=== PATIENT | female | born 1950 | race Caucasian/White ===

== ENCOUNTER 2018-02-24 16:30 | Emergency (ER) | payer MEDICARE, BC ==
[~2018-02-24] VITALS: Ht 177.8 cm; Wt 97.5 kg
[~2018-02-24 16:30] MED LIST: ASPI-482 PO; CLON0.5T11 PO; FURO-69 PO; METO10TA81 PO; MORP30TA PO; OLME1TAB23 PO; POTA10TA12 PO; PRAV40TA2 PO; ZOLP10TA4 PO
[2018-02-24 16:55] VITALS: BP 138/103
[2018-02-24] MEDS ORDERED: HYDROcodone/APAP 10/325 1 TAB TABLET PO ONE (17:00)
[2018-02-24] MEDS ORDERED: MORPHINE SULFATE 2 MG/ML VIAL. IM ONE (17:30)
--- NOTE | 2018-02-24 18:19 | RAD ---
Examination: Right Lower Extremity Venous Doppler Ultrasound History: Right lower extremity pain Comparison: None Procedure: Fenton scale, color flow 2D and spectal waveform analysis images are obtained with and without compression in the area of the common femoral vein, superficial femoral vein - femoral vein junction, main femoral vein (superficial femoral vein) and popliteal vein. Veins of the proximal calf are also imaged. Findings: There is normal duplex flow, color flow and compressibility of all visualized vein segments. No evidence of deep venous thrombus is present. Impression: No evidence of DVT in the right lower extremity. Electronically signed by: Rolando Pearson MD (02/24/2018 6:15 PM) [facility]
--- NOTE | 2018-02-24 18:23 | PHYS DOC ---
Past Medical History Past Medical History: No Pertinent History Past Surgical History: No Surgical History Alcohol Use: None Drug Use: None Adult General Chief Complaint Chief Complaint: KNEE INJURY HPI HPI Patient is a 67 year old female who presents with right knee pain. The patient states that her pain is been increasing throughout the day. She states that she could barely bear weight on it earlier today and presented to the emergency department. She feels like there is swelling as well to that extremity. She does have a history of a blood clot many years ago. She denies shortness of breath or chest pain. Review of Systems Review of Systems Constitutional: Denies fever or chills [] Eyes: Denies change in visual acuity, redness, or eye pain [] HENT: Denies nasal congestion or sore throat [] Respiratory: Denies cough or shortness of breath [] Cardiovascular: No additional information not addressed in HPI [] GI: Denies abdominal pain, nausea, vomiting, bloody stools or diarrhea [] : Denies dysuria or hematuria [] Musculoskeletal: see history of present illness Integument: Denies rash or skin lesions [] Neurologic: Denies headache, focal weakness or sensory changes [] Endocrine: Denies polyuria or polydipsia [] All other systems were reviewed and found to be within normal limits, except as documented in this note. Current Medications Current Medications Current Medications Medications (Trade) Dose Ordered Sig/[place] Start Time Stop Time Status Last Admin Dose Admin Acetaminophen/ Hydrocodone Bitart (Lortab 10/325) 1 tab 1X ONCE 02/24/18 17:00 02/24/18 17:17 DC Morphine Sulfate (Morphine Sulfate) 2 mg 1X ONCE 02/24/18 17:30 02/24/18 17:31 DC 02/24/18 17:31 2 MG Allergies Allergies Allergies Coded Allergies Type Severity Reaction Last Updated Verified codeine Allergy Intermediate 01/18/14 Yes ketorolac Allergy Intermediate 01/18/14 Yes levofloxacin Allergy Intermediate 01/18/14 Yes oxycodone Allergy Intermediate 01/18/14 Yes prochlorperazine Allergy Intermediate 01/18/14 Yes risperidone Allergy Intermediate 01/18/14 Yes Physical Exam Physical Exam Constitutional: Well developed, well nourished, no acute distress, non-toxic appearance. [] Cardiovascular:Heart rate regular rhythm, no murmur [] Lungs & Thorax: Bilateral breath sounds clear to auscultation [] Abdomen: Bowel sounds normal, soft, no tenderness, no masses, no pulsatile masses. [] Skin: Warm, dry, no erythema, no rash. [] Back: No tenderness, no CVA tenderness. [] Extremities: tenderness to right knee with no calor or ecchymosis noted, no significant edema noted to the knee in comparison to the left knee, no cyanosis , no clubbing, ROM decreased due to pain, Homans sign is negative, pulses and sensation are intact distal to affected extremity Neurologic: Alert and oriented X 3, normal motor function, normal sensory function, no focal deficits noted. [] Psychologic: Affect normal, judgement normal, mood normal. [] Current Patient Data Vital Signs Vital Signs Date Time Temp Pulse Resp B/P (MAP) Pulse Ox O2 Delivery O2 Flow Rate FiO2 02/24/18 17:31 16 99 Room Air 02/24/18 16:55 97.7 67 138/103 (115) 97.7 EKG EKG [] Radiology/Procedures Radiology/Procedures []PATIENT: NASRIN JACQUES AACCOUNT: [id number]#: [id number] : 1950 LOCATION: ER AGE: 67 SEX: F EXAM STATUS: REG ER ORD. PHYSICIAN: JESSICA GREGORIO APRN REASON: RT ARM PAIN, r/o dvt PROCEDURE: VENOUS LOWER EXTREMITY RIGHT Examination: Right Lower Extremity Venous Doppler Ultrasound History: Right lower extremity pain Comparison: None Procedure: Fenton scale, color flow 2D and spectal waveform analysis images are obtained with and without compression in the area of the common femoral vein, superficial femoral vein - femoral vein junction, main femoral vein (superficial femoral vein) and popliteal vein. Veins of the proximal calf are also imaged. Findings: There is normal duplex flow, color flow and compressibility of all visualized vein segments. No evidence of deep venous thrombus is present. Impression: No evidence of DVT in the right lower extremity. Electronically signed by: Rolando Pearson MD (02/24/2018 6:15 PM) [facility] DICTATED and SIGNED BY: ROLANDO PEARSON MD DATE: 02/24/18 181 PATIENT: NASRIN JACQUES ACCOUNT: [id number] : 1950 LOCATION: ER AGE: 67 SEX: F EXAM STATUS: DEP ER ORD. PHYSICIAN: JESSICA GREGORIO APRN REASON: pain with no injury PROCEDURE: KNEE RIGHT 3V Examination: 3 views of the right knee HISTORY: History of right knee pain COMPARISON: None available FINDINGS: Severe joint space loss identified in the medial compartment. Moderate joint space loss identified in the lateral, patellar femoral compartments of the knee. 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 Electronically signed by: Rolando Pearson MD (02/24/2018 8:31 PM) [facility] DICTATED and SIGNED BY: ROLANDO PEARSON MD DATE: 02/24/182028 Course & Med Decision Making Course & Med Decision Making Pertinent Labs and Imaging studies reviewed. (See chart for details) []The patient states that she is allergic to all pain medications except morphine. She was given 4 mg of morphine IM in the emergency department to control her pain. She was placed in a knee immobilizer and is to follow-up with orthopedics. She is in agreement with this plan. Dragon Disclaimer Dragon Disclaimer This electronic medical record was generated, in whole or in part, using a voice recognition dictation system. Departure Departure Impression: Primary Impression: Knee pain Disposition: 01 HOME, SELF-CARE Condition: STABLE Referrals: NERISSA KO MD (PCP) JULIANN UYSUF II, MD Patient Instructions: Knee Pain Additional Instructions: Follow-up with orthopedics for further evaluation of your knee. Wear the knee immobilizer for comfort. If needed you may use her at home crutches. Be very careful while using crutches. JESSICA GREGORIO APRN Feb 24, 2018 18:23
--- NOTE | 2018-02-24 20:35 | RAD ---
Examination: 3 views of the right knee HISTORY: History of right knee pain COMPARISON: None available FINDINGS: Severe joint space loss identified in the medial compartment. Moderate joint space loss identified in the lateral, patellar femoral compartments of the knee. 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 Electronically signed by: Rolando Pearson MD (02/24/2018 8:31 PM) [facility]
== END 2018-02-24 18:59 | disposition home or self-care (01) ==
LOC: ER 16:30
DX: M25.561 Pain in right knee (principal); M79.604 Pain in right leg; Z88.1 Allergy status to other antibiotic agents; Z88.5 Allergy status to narcotic agent; Z88.6 Allergy status to analgesic agent; Z88.8 Allergy status to other drugs, medicaments and biological substances
CPT/HCPCS: 29505; 73562; 93971; 96372; 99284; J2270

== ENCOUNTER → 2019-04-23 | Outpatient (CLI) | payer MEDICARE, BC ==
[~2019-04-23] MED LIST changes: +ALBU2.5V5 NEB; +CHOL3000 PO; +CLON-77 PO; -CLON0.5T11 PO; +CRESTOR5 MG PO; +DULO60CA6 PO; +HYDR25TA PO; +LEVO100T PO; +MELA3TAB43 PO; +METO50TA4 PO; +VALS1TAB18 PO; +VENTOLIN HFA18 GM INH
[2019-04-23 09:57] LABS: BASO % 1 % (0-3); EOS # 0.3 x10^3/uL (0.0-0.7); EOS % 4 % (0-3); HEMATOCRIT 46.5 % (36.0-47.0); HEMOGLOBIN 15.3 g/dL (12.0-15.5); LYMPH # 2.2 x10^3/uL (1.0-4.8); LYMPH % 31 % (24-48); MEAN CORPUSCULAR HEMOGLOBIN 29 pg (25-35); MEAN CORPUSCULAR HGB CONC 33 g/dL (31-37); MEAN CORPUSCULAR VOLUME 87 fL (79-100); MONO # 0.6 x10^3/uL (0.0-1.1); MONO % 9 % (0-9); NEUT # 3.8 x10^3/uL (1.8-7.7); NEUT % 55 % (31-73); PLATELET COUNT 238 x10^3/uL (140-400); RED BLOOD COUNT 5.37 x10^6/uL (3.50-5.40); RED CELL DISTRIBUTION WIDTH 14.2 % (11.5-14.5); WHITE BLOOD COUNT 6.9 x10^3/uL (4.0-11.0)
[2019-04-23 10:06] LABS: ALBUMIN 3.8 g/dL (3.4-5.0); CALCIUM 9.4 mg/dL (8.5-10.1); CREATININE 1.1 mg/dL (0.6-1.0); GFR 49.7; POTASSIUM 4.2 mmol/L (3.5-5.1)
--- NOTE | 2019-04-23 13:23 | EKG ---
[facility] [address] [place] [address] Test Date: 2019-04-23 Test Time: 13:16:56 Pat Name: NASRIN JACQUES Department: Room: Gender: F Nuclear Cardiology Technologist: KERRY : 1950 Requested By: JALEESA BISHOP Order Number: [id number] Reading MD: Measurements Intervals [place] Rate: 63 P: 32 VA: 176 QRS: 2 QRSD: 88 T: 22 QT: 422 QTc: 435 Interpretive Statements SINUS RHYTHM NO SPECIFIC ECG ABNORMALITIES RI6.02 No previous ECG available for comparison
--- NOTE | 2019-04-23 15:44 | RAD ---
AP and Lateral Views of the Chest 04/23/2019 9:20 AM Indication: Preoperative Comparison: None Findings: There is no focal consolidation or infiltrate identified. The cardiomediastinal silhouette is within normal limits. There is no evidence of pneumothorax or pleural effusion. No acute osseous abnormalities are identified. Impression: No evidence of acute cardiopulmonary process. Electronically signed by: Silvestre Luke MD (04/23/2019 3:41 PM) [id number]
[2019-04-27 06:10] LABS: HEMOGLOBIN A1C 5.9 % (4.8-5.6)
== END | disposition home or self-care (01) ==
LOC: SURGPAT 13:20
PROVIDERS: ATTEND Orthopaedic Surgery
DX: Z01.818 Encounter for other preprocedural examination (principal); M17.11 Unilateral primary osteoarthritis, right knee
CPT/HCPCS: 36415; 71046; 80048; 82040; 82306; 83036; 85025; 85610; 85651; 85730; 87641; 93005